=== PATIENT | male | born 1940 | race Caucasian/White ===

== ENCOUNTER 2017-11-16 10:33 | Emergency (ER) | payer MEDICARE | END 2017-11-16 12:04 | disposition home or self-care (01) | LOC: EDH 10:33 | DX: J18.9 Pneumonia, unspecified organism (principal); E78.5 Hyperlipidemia, unspecified; K21.9 Gastro-esophageal reflux disease without esophagitis | CPT/HCPCS: 71046 ==

== ENCOUNTER → 2018-08-31 | Outpatient (CLI) | payer OTHER | END | disposition home or self-care (01) | LOC: OIH 13:53 | PROVIDERS: ATTEND Family Medicine | DX: Z13.6 Encounter for screening for cardiovascular disorders (principal) | CPT/HCPCS: 75571 ==

== ENCOUNTER → 2019-08-31 | Outpatient (CLI) | payer MEDICARE | END | disposition home or self-care (01) | LOC: RAH 09:40 | PROVIDERS: ATTEND Podiatrist | DX: I73.9 Peripheral vascular disease, unspecified (principal); B35.3 Tinea pedis; B35.1 Tinea unguium | CPT/HCPCS: 93922 ==

== ENCOUNTER 2019-12-21 09:50 | Emergency (ER) | payer MEDICARE ==
[2019-12-21] MEDS ORDERED: TETRACAINE HCL 0.5% 4 ML OPHTH SOLN ONE (10:13)
[2019-12-21] MEDS ORDERED: NA BORATE/BORIC AC/H2O/NACL 120 ML OPHTH IRRIG SOLN ONE (10:13)
[2019-12-21] MEDS ORDERED: FLUORESCEIN SODIUM 1 STRIP STRIP ONE (10:14)
== END 2019-12-21 11:19 | disposition home or self-care (01) ==
LOC: EDH 09:50
DX: S05.02XA Injury of conjunctiva and corneal abrasion without foreign body, left eye, initial encounter (principal); K21.9 Gastro-esophageal reflux disease without esophagitis; E78.5 Hyperlipidemia, unspecified; X58.XXXA Exposure to other specified factors, initial encounter; Y93.89 Activity, other specified; Y92.89 Other specified places as the place of occurrence of the external cause; Y99.8 Other external cause status

== ENCOUNTER 2023-12-29 15:16 | Emergency (ER) | payer MEDICARE ==
[~2023-12-29] VITALS: Ht 177.8 cm; Wt 99.8 kg
[~2023-12-29 15:16] MED LIST: ATOR40TA69 PO; DOCU-116 PO; IBUP-2784 PO; LEVO50TA11 PO; MIRT-93 PO; OMEP20CA12 PO; SERT-439 PO; TRAM50TA4 PO
[2023-12-29 16:54] LABS: BASOPHILS # (AUTO) 0.03 K/uL (0.00-0.20); BASOPHILS % (AUTO) 0.3 % (0.0-5.0); EOSINOPHILS # (AUTO) 0.02 K/uL (0.00-0.70); EOSINOPHILS % (AUTO) 0.2 % (0.0-8.0); HEMATOCRIT 45.1 % (42-54); IMMATURE GRANULOCYTE ABSOLUTE 0.05 K/uL (0-1); LYMPHOCYTES # (AUTO) 0.8 K/uL (1.0-4.8); LYMPHOCYTES % (AUTO) 7.6 % (21.0-51.0); MEAN CORPUSCULAR HGB CONC 31.9 g/dL (32.0-36.0); MONOCYTES # (AUTO) 0.6 K/uL (0.1-1.0); MONOCYTES % (AUTO) 5.6 % (3.0-13.0); NEUTROPHILS # (AUTO) 9.4 K/uL (1.8-7.7); NEUTROPHILS % (AUTO) 85.8 % (40.0-77.0); PLATELET COUNT (AUTO) 229 K/uL (130-400); RED CELL DISTRIBUTION WIDTH 14.7 % (11.0-15.5)
[2023-12-29] MEDS: LACTATED RINGERS 1000ML 1,000 ML IV ONE (17:01)
[2023-12-29 17:11] LABS: CREATININE 1.3 mg/dL (0.5-1.3); POTASSIUM 3.9 mmol/L (3.5-5.1)
[2023-12-29 17:15] LABS: ALBUMIN 3.8 g/dL (3.5-5.0); BILIRUBIN,TOTAL 0.7 mg/dL (0.2-1.0)
[2023-12-29] MEDS ORDERED: ONDA4TAB10 PO (18:47)
[2023-12-29 18:55] VITALS: BP 135/68; PULSE 82; RESP 16; O2SAT 99
== END 2023-12-29 18:55 | disposition home or self-care (01) ==
LOC: EDH 15:16
DX: R11.2 Nausea with vomiting, unspecified (principal); R19.7 Diarrhea, unspecified; E78.00 Pure hypercholesterolemia, unspecified; Z79.899 Other long term (current) drug therapy; Z86.73 Personal history of transient ischemic attack (TIA), and cerebral infarction without residual deficits
CPT/HCPCS: 99283; 96360; 80053; 83690; 85025; 36415; J7030